=== PATIENT | male | born 1945 | race Caucasian/White ===

== ENCOUNTER 2021-11-28 15:49 | Observation (INO) | payer OTHER ==
[2021-11-28] MEDS ORDERED: PANTOPRAZOLE SODIUM 40 MG VIAL IVPUSH ONE (17:27)
[2021-11-28] MEDS ORDERED: PANTOPRAZOLE SODIUM 40 MG VIAL ONE (18:18)
[2021-11-28] MEDS ORDERED: LOSARTAN POTASSIUM 50 MG TABLET PO ONE (18:43)
[2021-11-28] MEDS ORDERED: LOSARTAN POTASSIUM 50 MG TABLET ONE (18:49)
[2021-11-28 19:24] LABS: EPI CELLS 2 /uL (0-25.1); HYALINE CASTS 1 /uL (0-3.1); PH,URINE 5.5 (5.0-8.0); URINE APPEARANCE CLEAR; URINE BACTERIA 8 /uL (0-1359); URINE BILIRUBIN NEGATIVE (NEGATIVE); URINE COLOR YELLOW; URINE GLUCOSE (UA) NEGATIVE (NEGATIVE); URINE KETONE NEGATIVE (NEGATIVE); URINE LEUK ESTERASE NEGATIVE (NEGATIVE); URINE NITRITE NEGATIVE (NEGATIVE); URINE PROTEIN 2+ (NEGATIVE); URINE RBC 5 /uL (0-23.9); URINE WBC 13 /uL (0-25.8)
[2021-11-28 19:39] LABS: BASO % 0.7 % (0-2.0); HEMATOCRIT 44.5 % (35.4-49); HEMOGLOBIN 14.7 GM/dL (11.7-16.9); LYMPH % 18.8 % (8-40); MCH 28.8 pg (25.7-33.7); MCHC 33.1 g/dl (32.0-35.9); MEAN CELL VOLUME 86.9 fl (80-96); MEAN PLT VOLUME 12.8 fl (7.5-11.1); MONO % 5.9 % (3.8-10.2); NEUT % 70.6 % (42.8-82.8); PLATELET COUNT 129 10^3/uL (134-434); RBC 5.12 M/mm3 (4.00-5.60); RDW 15.3 % (11.9-15.9); WHITE BLOOD COUNT 8.6 K/mm3 (4.0-10.0)
[2021-11-28 19:45] LABS: INR 1.03 (0.83-1.09); PROTHROMBIN TIME (PATIENT) 11.8 SEC (9.7-13.0)
[2021-11-28 19:47] LABS: ACTIVATED PTT 32.1 SECONDS (25.2-36.5)
[2021-11-28 19:59] LABS: CALCIUM 9.1 mg/dL (8.5-10.1)
[2021-11-28 20:00] LABS: ALBUMIN 3.7 g/dl (3.4-5.0); BLOOD UREA NITROGEN 17.8 mg/dL (7-18)
[2021-11-28 20:05] LABS: BILIRUBIN,TOTAL 0.6 mg/dL (0.2-1); TOT PROT 6.8 g/dl (6.4-8.2)
[2021-11-28] MEDS ORDERED: LABETALOL HCL 5 MG/1 ML (100MG/20 ML VIAL) IVPUSH ONE ×2 (22:34→23:47)
[2021-11-28] MEDS ORDERED: LABETALOL HCL 5 MG/1 ML (100MG/20 ML VIAL) ONE (23:49)
[2021-11-29] MEDS ORDERED: DOCUSATE SODIUM 100 MG CAPSULE (FP) PO PRN (00:09)
[2021-11-29] MEDS ORDERED: ACETAMINOPHEN 325 MG TABLET (FP) PO PRN (00:09)
[2021-11-29 01:02] VITALS: BMI 26.4
[2021-11-29 03:24] LABS: PHOSPHOROUS 3.2 mg/dL (2.5-4.9)
[2021-11-29 07:58] LABS: EOS % 4.1 % (0-4.5); HEMATOCRIT 42.7 % (35.4-49); HEMOGLOBIN 14.4 GM/dL (11.7-16.9); LYMPH % 17.2 % (8-40); MCH 29.1 pg (25.7-33.7); MCHC 33.7 g/dl (32.0-35.9); MEAN CELL VOLUME 86.5 fl (80-96); MEAN PLT VOLUME 12.8 fl (7.5-11.1); MONO % 5.3 % (3.8-10.2); NEUT % 72.4 % (42.8-82.8); PLATELET COUNT 139 10^3/uL (134-434); RBC 4.94 M/mm3 (4.00-5.60); RDW 14.8 % (11.9-15.9); WHITE BLOOD COUNT 8.8 K/mm3 (4.0-10.0)
[2021-11-29 08:16] LABS: BLOOD UREA NITROGEN 17.1 mg/dL (7-18); CALCIUM 9.1 mg/dL (8.5-10.1)
[2021-11-29 08:20] LABS: CREATININE 0.9 mg/dL (0.55-1.3)
[2021-11-29] MEDS ORDERED: PANTOPRAZOLE 40 MG TABLET PO SCH (10:00)
[2021-11-29] MEDS: QUEtiapine FUMARATE 25 MG TABLET PO PRN ×3 (10:35→20:13)
[2021-11-29] MEDS: CLOTRIMAZOLE/BETAMET DIPROP 15 GM TUBE TP SCH ×2 (11:35→21:09)
[2021-11-29] MEDS: amLODIPine BESYLATE 5 MG TABLET (FP) PO SCH (12:09)
[2021-11-29] MEDS: LOSARTAN POTASSIUM 50 MG TABLET PO SCH (14:41)
[2021-11-29] MEDS: PANTOPRAZOLE 40 MG TABLET PO SCH (21:05)
[2021-11-29] MEDS: ATORVASTATIN CA 40 MG TABLET (FP) PO SCH (21:06)
[2021-11-30] MEDS: NEBIVOLOL 5 MG TABLET (FP) PO SCH (09:28)
[2021-11-30] MEDS: ENOXAPARIN NA (PORCINE) 40 MG/0.4 ML DISP.SYRIN SQ SCH (09:29)
[2021-11-30] MEDS: CLOTRIMAZOLE/BETAMET DIPROP 15 GM TUBE TP SCH ×2 (09:29→21:30)
[2021-11-30] MEDS: PANTOPRAZOLE 40 MG TABLET PO SCH ×2 (09:29→21:30)
[2021-11-30] MEDS: LOSARTAN POTASSIUM 50 MG TABLET PO SCH (09:29)
[2021-11-30] MEDS: amLODIPine BESYLATE 5 MG TABLET (FP) PO SCH (09:29)
[2021-11-30 11:40] LABS: HEMATOCRIT 45.7 % (35.4-49); MCH 28.8 pg (25.7-33.7); MCHC 32.8 g/dl (32.0-35.9); MEAN PLT VOLUME 12.9 fl (7.5-11.1); PLATELET COUNT 146 10^3/uL (134-434); WHITE BLOOD COUNT 8.6 K/mm3 (4.0-10.0)
[2021-11-30] MEDS: QUEtiapine FUMARATE 25 MG TABLET PO PRN ×2 (13:33→21:29)
[2021-11-30] MEDS: ATORVASTATIN CA 40 MG TABLET (FP) PO SCH (21:29)
[2021-12-01 05:29] VITALS: TEMP 98.1
[2021-12-01] MEDS: NEBIVOLOL 5 MG TABLET (FP) PO SCH (09:18)
[2021-12-01] MEDS: LOSARTAN POTASSIUM 50 MG TABLET PO SCH (09:18)
[2021-12-01] MEDS: amLODIPine BESYLATE 5 MG TABLET (FP) PO SCH (09:18)
[2021-12-01] MEDS: PANTOPRAZOLE 40 MG TABLET PO SCH (09:18)
[2021-12-01] MEDS: CLOTRIMAZOLE/BETAMET DIPROP 15 GM TUBE TP SCH (09:18)
[2021-12-01] MEDS: ENOXAPARIN NA (PORCINE) 40 MG/0.4 ML DISP.SYRIN SQ SCH (09:18)
[2021-12-01 10:13] VITALS: BP 158/94; PULSE 80; RESP 18
== END 2021-12-01 13:59 | disposition home or self-care (01) ==
LOC: JER 15:49 → JERBED 18:19 → J4W 11-29 00:13
PROVIDERS: ADMIT Internal Medicine; ATTEND Family Medicine
PROC: 3E023GC Introduction of Other Therapeutic Substance into Muscle, Percutaneous Approach (ICD-10-PCS; principal; 2021-11-28)
PROC: 3E033GC Introduction of Other Therapeutic Substance into Peripheral Vein, Percutaneous Approach (ICD-10-PCS; 2021-11-28)
DX: K92.2 Gastrointestinal hemorrhage, unspecified (principal); K92.1 Melena; R94.31 Abnormal electrocardiogram [ECG] [EKG]; D69.6 Thrombocytopenia, unspecified; I10 Essential (primary) hypertension; R19.7 Diarrhea, unspecified; E78.5 Hyperlipidemia, unspecified
CPT/HCPCS: 36415; 71046-TC-FY; 80048; 80053; 81003; 82272; 82728; 83540; 83550; 83735; 84100; 84484; 85025; 85027; 85610; 85730; 86850; 86900; 86901; 93005; 93010; 96372; 96374; 96375; 96376; 99285-25; C9803-CS; G0378; U0003; U0005